=== PATIENT | female | born 1960 | race Caucasian/White ===

== ENCOUNTER 2018-11-09 05:46 | Day surgery (SDC) | payer MEDICAID ==
[2018-11-09] MEDS ORDERED: FENTAnyl 50 MCG/ML VIAL (08:23)
[2018-11-09] MEDS ORDERED: MIDAZOLAM 1 MG/ML 2 ML INJ (08:23)
== END 2018-11-09 10:06 | disposition home or self-care (01) ==
LOC: GIL 05:46
DX: K44.9 Diaphragmatic hernia without obstruction or gangrene (principal); K21.9 Gastro-esophageal reflux disease without esophagitis; K29.60 Other gastritis without bleeding
CPT/HCPCS: 43239; 88305